=== PATIENT | female | born 1975 | race Hispanic/Latino ===

== ENCOUNTER 2017-04-02 21:28 | Emergency (ER) | payer MEDICAID ==
[2017-04-02 21:28] VITALS: BMI 27.4
[2017-04-02 22:39] VITALS: TEMP 98.1
[2017-04-02] MEDS ORDERED: TDAP Vaccine 0.5 mL Syr IM ONE (23:33)
[2017-04-02] MEDS ORDERED: Promethazine DM 6.25 mg-15 mg/5 ml Syrup PO STA (23:34)
--- NOTE | 2017-04-02 23:42 | ED PDOC ---
"Arrival/HPI <Maximilian Lovell - Last Filed: 04/03/17 00:18> - General Historian: Patient - History of Present Illness Time/Duration: Prior to Arrival Context: Home <Kip Caraballo - Last Filed: 04/04/17 16:34> - General Chief Complaint: Trauma Time Seen by Provider: 04/02/17 23:33 - History of Present Illness Narrative History of Present Illness (Text): 04/02/17 23:41 This 41 yo female presents to this ED c/o right eyebrow abrasion x 2-3 hours. She stated she was hit on forehead with a door at work. Patient got dizzy at first. She has mild forehead pain. Patient denies LOC, diplopia, dysarthria, n /v, weakness, paresthesias, neck pain, sob, cp, dizziness, or abnormal gait. Patient stated she has a URI symptoms, and she wishes to have prescription for cough medication and ABX (Kip Caraballo) Past Medical History - Provider Review Nursing Documentation Reviewed: Yes - Infectious Disease Hx of Infectious Diseases: None - Tetanus Immunization Tetanus Immunization: Unknown - Past Medical History Past Medical History: No Previous - Cardiac Hx Cardiac Disorders: No Hx Hypertension: No - Pulmonary Hx Respiratory Disorders: Yes Hx Asthma: Yes Hx Bronchitis: Yes - Neurological HX Cerebrovascular Accident: No Hx Seizures: No - Hematological/Oncological Hx Anemia: Yes Hx Cancer: No - Genitourinary/Gynecological Hx Sexually Transmitted Diseases: No - Psychiatric Hx Anxiety: Yes Hx Emotional Abuse: No Hx Physical Abuse: No Hx Substance Use: No - Surgical History Hx Orthopedic Surgery: Yes (RIGHT KNEE) Hx Tubal Ligation: Yes - Anesthesia Hx Anesthesia: Yes Hx Anesthesia Reactions: No - Suicidal Assessment Feels Threatened In Home Enviroment: No <Kip Caraballo - Last Filed: 04/04/17 16:34> Family/Social History - Physician Review Nursing Documentation Reviewed: Yes Family/Social History: No Known Family HX Smoking Status: Never Smoked Hx Alcohol Use: No Hx Substance Use: No Hx Substance Use Treatment: No <Kip Caraballo - Last Filed: 04/04/17 16:34> Allergies/Home Meds <Maximilian Lovell - Last Filed: 04/03/17 00:18> <Caraballo,Nahim P - Last Filed: 04/04/17 16:34> Allergies/Adverse Reactions: Allergies No Known Allergies Allergy (Verified 09/23/16 16:55) Review of Systems - Review of Systems Constitutional: Normal. absent: Fatigue, Weight Change, Fevers Eyes: Normal. absent: Vision Changes ENT: Normal Respiratory: Normal. absent: SOB, Cough Cardiovascular: Normal. absent: Chest Pain, Palpitations Gastrointestinal: Normal. absent: Abdominal Pain, Nausea, Vomiting Genitourinary Female: Normal. absent: Dysuria, Frequency, Hematuria Musculoskeletal: Normal. absent: Back Pain, Neck Pain Skin: Other (See HPI). absent: Rash Neurological: Headache, Dizziness. absent: Focal Weakness, Gait Changes, Speech Changes, Facial Droop, Disequilibrium, Seizure Endocrine: Normal Hemo/Lymphatic: Normal Psychiatric: Normal <Kip Caraballo P - Last Filed: 04/04/17 16:34> Physical Exam Temperature: Afebrile Blood Pressure: Normal Pulse: Regular Respiratory Rate: Normal Appearance: Positive for: Well-Appearing, Non-Toxic, Comfortable Pain Distress: None Mental Status: Positive for: Alert and Oriented X 3 - Systems Exam Head: Present: Atraumatic, Normocephalic, Other ((+) right eyebrow linear abrasion. No raccoon sign. No flores sign) Pupils: Present: PERRL, Other (No hyphema) Extroacular Muscles: Present: EOMI. No: Entrapment Conjunctiva: Present: Normal Ears: Present: Normal, NORMAL TM, Normal Canal, Other (No hemotympanum). No: Erythema, TM Bulging, Fluid, TM Perf Mouth: Present: Moist Mucous Membranes, Normal Lips, Normal Tounge Pharnyx: Present: Normal. No: ERYTHEMA, EXUDATE, TONSILS ENLARGED Nose (External): Present: Atraumatic Nose (Internal): Present: Normal Inspection. No: Septal Hematoma, Epistaxis Neck: Present: Normal Range of Motion, Trachea Midline. No: Meningeal Signs, MIDLINE TENDERNESS, Paraspinal Tenderness Respiratory/Chest: Present: Clear to Auscultation, Good Air Exchange. No: Respiratory Distress, Accessory Muscle Use, Wheezes, Decreased Breath Sounds, Rales, Retracting, Rhonchi Cardiovascular: Present: Regular Rate and Rhythm, Normal S1, S2. No: Murmurs Abdomen: Present: Normal Bowel Sounds. No: Tenderness, Distention, Peritoneal Signs Back: Present: Normal Inspection. No: CVA Tenderness Upper Extremity: Present: Normal Inspection, Normal ROM, NORMAL PULSES, Neurovascularly Intact, Capillary Refill < 2s. No: Cyanosis, Edema Lower Extremity: Present: Normal Inspection, NORMAL PULSES, Normal ROM, Neurovascularly Intact, Capillary Refill < 2 s. No: Edema, CALF TENDERNESS Neurological: Present: GCS=15, CN II-XII Intact, Speech Normal, Motor Func Grossly Intact, Normal Sensory Function, Normal Cerebellar Funct, Norm Deep Tendon Reflexes, Gait Normal, Memory Normal, Other (No neuro focal deficits) Skin: Present: Warm, Dry, Normal Color. No: Rashes Psychiatric: Present: Alert, Oriented x 3 <Kip Caraballo - Last Filed: 04/04/17 16:34> Vital Signs Temp Pulse Resp BP Pulse Ox 04/03/17 01:30 85 17 110/75 97 04/02/17 22:37 98.1 F 88 18 133/67 100 Medical Decision Making <Maximilian Lovell - Last Filed: 04/03/17 00:18> Re-evaluation Time: 01:15 Reassessment Condition: Re-examined, Improved <Kip Caraballo - Last Filed: 04/04/17 16:34> ED Course and Treatment: 04/03/17 01:15 Re-evaluation. Patient feels better. Discussed results and plan with patient who expresses understanding. All questions answered and there is agreement with the plan to discharge home with instructions. Patient stable for discharge. Return if symptoms persist or worsen. (Kip Caraballo) - RAD Interpretation Narrative RAD Interpretations (Text): 04/03/17 01:02 [facility] FINDINGS: No intracranial hemorrhage. No extra axial collections. No intracranial edema. No fluid in the sinuses or mastoid air cells. No depressed fractures. IMPRESSION: No acute intracranial injury. RYAN BREAUX | Final Radiology Report Thank you for allowing us to participate in the care of your patient. Dictated and Authenticated by: Elli Rodriguez MD 04/03/2017 12:24 AM Eastern Time ([place] & [place]) (Kip Caraballo P) Radiology Orders: 04/02/17 23:33 HEAD W/O CONTRAST [CT] Stat - Medication Orders Current Medication Orders: Discontinued Medications Promethazine HCl/Dextromethorphan (Phenergan Dm Syrup) 5 ml PO STAT STA Stop: 04/02/17 23:35 Last Admin: 04/03/17 00:00 Dose: 5 ml Tetanus/Reduced Diphtheria/Acell Pertussis (Boostrix Vaccine Inj) 0.5 ml IM .ONCE ONE Stop: 04/02/17 23:34 Last Admin: 04/03/17 00:01 Dose: 0.5 ml - PA / [employer] / Resident Statement / has reviewed & agrees with the documentation as recorded. <Maximilian Lovell - Last Filed: 04/03/17 00:18> Disposition/Present on Arrival <Maximilian Lovell - Last Filed: 04/03/17 00:18> - Present on Arrival Any Indicators Present on Arrival: No History of DVT/PE: No History of Uncontrolled Diabetes: No Urinary Catheter: No History of Decub. Ulcer: No History Surgical Site Infection Following: None - Disposition Have Diagnosis and Disposition been Completed?: Yes Disposition Time: 01:16 Patient Plan: Discharge <Kip Caraballo - Last Filed: 04/04/17 16:34> - Disposition Diagnosis: Closed head injury, Facial abrasion, Upper respiratory infection, Cough Disposition: HOME/ ROUTINE Condition: GOOD Discharge Instructions (ExitCare): Head Injury (ED), Upper Respiratory Infection (ED) Additional Instructions: Call private doctor for follow up visit in 1-2 days. Take medication as instructed. return to emergency if symptoms worsen. Prescriptions: Azithromycin [Z-Antonio] 250 mg PO DAILY #6 tab Promethazine DM [Dextromethorphan/Promethazine 15 MG/5 Ml-6.25] 5 ml PO Q4H PRN #180 ml PRN Reason: Cough Referrals: Alley Jacobsen MD [Primary Care Provider] - Follow up with primary Forms: WORK NOTE"
--- NOTE | 2017-04-03 00:24 | CT ---
EXAM: CT Head Without Intravenous Contrast CLINICAL HISTORY: 41 years old, female; Injury or trauma; Injury Hit by door; Initial encounter; Concussion / head injury TECHNIQUE: Axial computed tomography images of the head/brain without intravenous contrast. This CT exam was performed using one or more of the following dose reduction techniques: automated exposure control, adjustment of the mA and/or kV according to patient size, and/or use of iterative reconstruction technique. EXAM DATE/TIME: 04/02/2017 11:33 PM COMPARISON: CT - HEAD W/O CONTRAST 12/04/2015 5:54:49 PM FINDINGS: No intracranial hemorrhage. No extra axial collections. No intracranial edema. No fluid in the sinuses or mastoid air cells. No depressed fractures. IMPRESSION: No acute intracranial injury.
[2017-04-03 01:31] VITALS: BP 110/75; PULSE 85; RESP 17; O2SAT 97
== END 2017-04-03 01:31 | disposition home or self-care (01) ==
LOC: ED 21:28
DX: S00.211A Abrasion of right eyelid and periocular area, initial encounter (principal); W22.8XXA Striking against or struck by other objects, initial encounter; Y92.69 Other specified industrial and construction area as the place of occurrence of the external cause; Y99.0 Civilian activity done for income or pay; J06.9 Acute upper respiratory infection, unspecified; Z23 Encounter for immunization